=== PATIENT | female | born 1985 | race Caucasian/White ===

== ENCOUNTER 2022-10-19 09:28 | Outpatient (CLI) | payer OTHER, SELFPAY ==
--- NOTE | ~2022-10-19 | XR_ITS ---
Clinical Indication: Hypertension, abnormal EKG AP and lateral views of the chest: Comparison: None Findings: The lungs are clear, without evidence of focal consolidation or pleural effusion. Possible COPD. Cardiomediastinal silhouette is within normal limits. Bones and soft tissues are unremarkable. Impression: Clear lungs. Possible COPD. Reviewed, dictated and finalized at location . [facility] Impression: Clear lungs. Possible COPD.
[2022-10-19 09:53] LABS: Add Urine Microscopic? YES; Appearance Urine Clear (Clear); Basophils Absolute Auto 0.02 K/mm3 (0.00-0.10); Basophils Percent Auto 0.3 % (0.0-1.0); Bilirubin Urine Negative (Negative); Blood Urine 1+ (Negative); Color Urine Light Yellow (Yellow); Eosinophils Absolute Auto 0.13 K/mm3 (0.02-0.50); Eosinophils Percent Auto 1.7 % (1.0-6.0); Glucose Urine UA Negative (Negative); Hematocrit 41.2 % (35.0-49.0); Hemoglobin 13.6 g/dL (12.0-15.0); Immature Granulocyte Absolute 0.02 K/mm3 (0.00-0.00); Immature Granulocyte Percent A 0.3 % (0.0-0.0); Ketones Urine Negative (Negative); Leukocyte Esterase Ur Trace (Negative); Lymphocytes Absolute Auto 2.28 K/mm3 (1.10-4.50); Mean Corpuscular Hemoglobin 30.1 pg (27.0-31.0); Mean Corpuscular Volume 91.2 fL (78.0-102.0); Mean Platelet Volume 9.4 fl (9.2-11.8); Monocytes Absolute Auto 0.48 K/mm3 (0.10-0.90); Monocytes Percent Auto 6.1 % (2.0-11.0); Neutrophils Absolute Auto 4.9 K/mm3 (1.7-7.2); Neutrophils Percent Auto 62.6 % (50.0-70.0); Nitrate Urine Negative (Negative); Platelet Count Result 293 K/mm3 (150-420); Protein Urine Negative (Negative); Red Blood Count 4.52 M/mm3 (4.20-5.40); Specific Grav Ur <= 1.005 (1.010-1.020); Urobilinogen Urine 0.2 mg/dL (0.2-1.0); White Blood Count 7.9 K/mm3 (4.8-10.8)
[2022-10-19 09:59] LABS: RBC Urine 0-2 /hpf (0-2); Squamous Epithelial Cell Urine Few /hpf (Few); WBC Urine 0-3 /hpf (0-3)
[2022-10-19 10:00] LABS: Bacteria Urine Trace /hpf
[2022-10-19 10:17] LABS: Alanine Aminotransferase 13 U/L (14-59); Albumin Level 3.9 g/dL (3.4-5.0); Alkaline Phosphatase 78 U/L (46-116); Anion Gap 9 mmol/L (8-16); Aspartate Amino Transferase 12 U/L (15-37); Bilirubin,Total 0.4 mg/dL (0.00-1.00); Blood Urea Nitrogen 11 mg/dL (7-18); Calcium 8.7 mg/dL (8.5-10.1); Carbon Dioxide 25 mmol/L (21-32); Chloride 103 mmol/L (98-108); Cholesterol 157 mg/dL (0-200); Estimated Glomerular Filt Rate > 60; Glucose 89 mg/dL (70-99); HDL Direct 57 mg/dL (40-60); LDL Cholesterol Calculated 84 mg/dL (<130); Osmolality Calculated 282 mOsm/kg (285-295); Potassium 3.7 mmol/L (3.5-5.1); Sodium 137 mmol/L (136-145); Thyroid Stimulating Hormone 1.69 uIU/mL (0.36-3.74); Total Protein 7.7 g/dL (6.4-8.2); Triglycerides 79 mg/dL (0-150)
== END 2022-10-19 09:29 | disposition home or self-care (01) ==
LOC: CHSLAB 09:33
PROVIDERS: PCP Internal Medicine; Visit Provider Internal Medicine
DX: M79.603 Pain in arm, unspecified (principal); I10 Essential (primary) hypertension; R94.31 Abnormal electrocardiogram [ECG] [EKG]
CPT/HCPCS: 36415; 71046; 80053; 80061; 81001; 84443; 85025

== ENCOUNTER 2022-11-03 14:40 | Outpatient (CLI) | payer OTHER, SELFPAY ==
--- NOTE | 2022-11-03 01:00 | ECHO_ITS ---
Patient Info Name: Paula Doherty Age: 36 years : 1985 Gender: Female Ht: 70 in Wt: 165 lbs BSA: 1.93 m2 HR: 61 bpm BP: 133 / 92 mmHg Heart Rhythm: Sinus Rhythm Technical Quality: Fair Exam Date: 11/03/2022 3:39 PM Exam Location: [facility] Patient Status: Outpatient Admit Date: 11/03/2022 Staff Ordering Physician: Xavier Amin MD Emergency Registrar: Kelly Arceo RDCS Attending Provider: Xavier Amin MD Exam Type: CA echo doppler w bubble study Study Info Indications - TRISH PX, HTN, ABN EKG Complete two-dimensional, color flow and Doppler transthoracic echocardiogram is performed with agitated saline. Contrast/Agitated Saline Contrast/Ag. Saline: Agitated Saline Amount: 20.00 ml Existing IV Access: No IV Access Condition: patent with no signs of infiltration New IV Access: Right Site Condition: IV removed Summary 1. Left ventricular chamber dimension is normal. 2. Left ventricular systolic function is normal, estimated at 60-65%. 3. The left ventricular diastolic function is normal. 4. E/e' 4 is not elevated. 5. 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 6. Suspected patent foramen ovale visualized by 2D and agitated saline imaging. 7. There is trace tricuspid valve regurgitation. 8. No pulmonary hypertension, estimated pulmonary arterial systolic pressure is 19 mmHg. 9. There is trace pulmonic regurgitation. Left Ventricle E/e' 4 is not elevated. Left ventricular chamber dimension is normal. Left ventricular systolic function is normal, estimated at 60-65%. The left ventricular diastolic function is normal. Right Ventricle Right ventricular systolic function is normal and with normal TAPSE 2.0 cm. Right ventricular chamber dimension is normal. Left Atria Left atrial chamber dimension is normal. Right Atria Right atrial chamber dimension is normal. Atrial Septum Agitated saline injection with and without valsalva maneuver opacified right side cardiac chambers with shunt to left side cardiac chambers. Suspected patent foramen ovale visualized by 2D and agitated saline imaging. Aortic Valve The aortic valve is trileaflet. There is no aortic valve stenosis. There is no aortic valve regurgitation. Pulmonic Valve There is trace pulmonic regurgitation. Mitral Valve There is no mitral valve stenosis. There is no mitral valve regurgitation. Tricuspid Valve There is trace tricuspid valve regurgitation. No pulmonary hypertension, estimated pulmonary arterial systolic pressure is 19 mmHg. Pericardium/Pleural There is no pericardial effusion. Inferior Vena Cava Normal inferior vena cava with >50% collapse upon inspiration consistent with normal right atrial pressure, 5 mmHg. Aorta The aortic root size at the sinus of Valsalva is normal. Left Ventricular Outflow Tract Name Value Normal LVOT 2D LVOT Diameter 2.1 cm LVOT Doppler LVOT Peak Velocity 120 cm/s LVOT Peak Gradient
== END 2022-11-03 14:41 | disposition home or self-care (01) ==
LOC: CHSIMG 14:41
PROVIDERS: PCP Internal Medicine; Visit Provider Internal Medicine
DX: I10 Essential (primary) hypertension (principal); R94.31 Abnormal electrocardiogram [ECG] [EKG]
CPT/HCPCS: 93306; 96375

== ENCOUNTER 2023-01-02 08:20 | Outpatient (CLI) | payer OTHER, SELFPAY ==
--- NOTE | 2023-01-02 09:38 | NIOX ---
Niox Report PFT: FeNO Evaluation (NIOX) Start: 01/02/23 09:17 Freq: Status: Active Protocol: Activity Type Activity Date Activity User E-sign Co-sign Detail Recorded Client Recorded Date Recorded By Document 01/02/23 09:17 GINA [id number] 01/02/23 09:17 GINA 01/02/23 09:17 NIOX Evaluation [NIOX Measurement] -FeNO Measurement Equals (ppb) 14 [NIOX Evaluation] -Level of Airway Inflammation Low (<25) [Charges] -NIOX Measurement Charges Yes
== END 2023-01-02 08:21 | disposition home or self-care (01) ==
PROVIDERS: PCP Internal Medicine; Visit Provider Internal Medicine
DX: J44.9 Chronic obstructive pulmonary disease, unspecified (principal)
CPT/HCPCS: 94060; 94726; 94729; 95012